=== PATIENT | female | born 1970 | race Caucasian/White ===

== ENCOUNTER 2017-01-08 09:27 | Emergency (ER) | payer BC | END 2017-01-08 12:34 | disposition home or self-care (01) | LOC: ER 09:27 | DX: N20.1 Calculus of ureter (principal); Z79.899 Other long term (current) drug therapy | CPT/HCPCS: 36415; 96374; 96375 ==

== ENCOUNTER 2017-01-10 16:21 | Emergency (ER) | payer BC | END 2017-01-10 18:28 | disposition home or self-care (01) | LOC: ER 16:21 | DX: K59.00 Constipation, unspecified (principal); R11.0 Nausea; Z79.899 Other long term (current) drug therapy; Z90.49 Acquired absence of other specified parts of digestive tract | CPT/HCPCS: 36415; 96372; J1885 ==